=== PATIENT | male | born 1950 | race Caucasian/White ===

== ENCOUNTER 2024-01-15 13:41 | Emergency (ER) | payer BC, SELFPAY ==
[2024-01-15 13:47] VITALS: BP 159/95
--- NOTE | 2024-01-15 16:04 | ED.GENMED ---
History of Present Illness
General
Chief Complaint: Back Pain
Source: patient
Exam Limitations: none
Time Seen by Provider: 01/15/24 15:51
Nursing documentation reviewed up to this point in time: agreed with
Travel History
Have you had any contact with someone who has COVID-19?: No
Do you have any symptoms of coronavirus? Fever > 100 degrees, chills, cough, shortness of breath, sore throat, loss of taste or smell, muscle aches, or headache?: No
History of Present Illness
History of Present Illness:
Patient to ED with complaint of upper back muscle spasms that have progressed to include entire back. This is an ongoing issue for him. He has been seen multiple times in the past for same. Treated with toradol,, valium, decadron with good results
in past. States he gets botox injections every 3 mos. Last injection ws in october. He is due to see provider in 2 weeks. Denies fever/chills, recent illness. No cp/pressur, SOB/cough. No history of recent trauma. No weakness inextremities.
Taking tramadol at home without improvement.
Past History
Past History
ED Past Medical History: Psychiatric (Anxiety) and Other (Left shoulder dislocation, trauma involving fractures of his left ribs, left clavicle, and left hemipelvis. Chronic back pain, Rheumatic heart disease, ADHD)
ED Past Surgical History: Orthopedic (Right shoulder, Right hip repair, Left knee replacement. )
Social History
Tobacco: Former smoker
Alcohol: None
Drug: None
Personal:
Living: with family
Employment: Retired
Family History
Family History: Other
Review of Systems
Review of Systems
Allergies reviewed?: Yes
All Other Systems: ROS reviewed and negative except as documented in HPI and ROS
Constitutional: Reports no symptoms
EENT: Reports no symptoms
Respiratory: Reports no symptoms
Cardiac: Reports no symptoms
ABD/GI: Reports no symptoms
: Reports no symptoms
Musculoskeletal: Reports muscle pain (Muscle spasms of back, left upper back to left lumbar region)
Skin: Reports no symptoms
Neurological: Reports no symptoms
Psychiatric: Reports no symptoms
Phy Exam
General Physical Exam
General Presentation: well appearing and no apparent distress
General age: appears stated age
General Skin: warm and dry
General Habitus: normal
General Mental: alert
General Hydration: appears well hydrated
Musculoskeletal Exam
Musculoskeletal Exam: full ROM and neuro vasc intact
Skin Exam
Skin Exam: normal color, warm/dry and no rash
Psychiatric Exam
Psychiatric Exam: normal mood/affect
Course
Orders/Labs/Results
Orders:
Orders
01/15/24 16:01
Dexamethasone Sod Phosphate [Decadron] 10 mg IV NOW STA
Ketorolac [Toradol] 30 mg IV NOW STA
diazePAM [Valium Injection] 5 mg IV NOW STA
Vital Signs
Initial and Last Documented VS:
Initial Vital Signs
Temp Pulse Resp BP Pulse Ox
98.3 F 100 16 159/95 98
01/15/24 13:47 01/15/24 13:47 01/15/24 13:47 01/15/24 13:47 01/15/24 13:47
Last Documented Vital Signs
Temp Pulse Resp BP Pulse Ox
98.3 F 100 16 159/95 98
01/15/24 13:47 01/15/24 13:47 01/15/24 13:47 01/15/24 13:47 01/15/24 13:47
*Critical Care Note
Total Time (30-74mins, 75-104mins- exclusive of procedures): Not Applicable
Update Note
Update Note:
Improved after IV medicatioms. He is discharged home. WIll follow up with pain managment.
ED Attending Note
-
Portions of this chart may have been created with voice recognition software.� Occasional wrong word or��sound alike� substitutions may have occurred due to the inherent limitations of voice recognition software.
Discharge Plan
Departure
Patient Disposition: Home (Routine Discharge)
Date of Disposition: 01/15/24
Time of Disposition: 16:53
Patient with high blood pressure during this ER visit?: No
Condition: Good
Covid-19: Not Applicable
Discharge Problem:
Muscle spasm
Instructions: Muscle Spasms (DC)
Prescriptions:
No Action
dextroamphetamine-amphetamine [Adderall] 30 MG tablet
30 mg PO DAILY
mupirocin 1 APPLIC ointment
1 applic intranasal BID Qty: 1 0RF
Patient Comments:
pt completed 3 days preop and AM of surgery. -WM
celecoxib 200 MG capsule
200 mg PO DAILY Qty: 30 0RF
Rx Instructions:
Take with food.
Do not take within 2 hours of Aspirin.
sennosides [senna] 1 TABLET tablet
2 tab PO BID 0RF
lidocaine [Aspercreme (lidocaine)] 1 PATCH adhesive patch,medicated
2 patch topical DAILY PRNQty: 14 0RF
Rx Instructions:
Over the counter. Remove nightly.
Apply to right thigh. Do not apply over incision.
aspirin 325 MG tablet
325 mg PO DAILY Qty: 28 0RF
Rx Instructions:
Take daily x4 weeks for blood clot prevention.
magnesium hydroxide 30 ML suspension
30 ml PO DAILYPRN PRN (Reason: constipation) 0RF
docusate sodium 100 MG capsule
100 mg PO BID 0RF
amlodipine 5 MG tablet
5 mg PO DAILY Qty: 0 0RF
Rx Instructions:
Hold if systolic blood pressure <130 while on Oxycodone.
lisinopril 10 MG tablet
10 mg PO DAILY Qty: 0 0RF
Rx Instructions:
Hold if systolic blood pressure <130 while on Oxycodone.
oxycodone 5 MG tablet
5 mg PO Q4HPRN PRN (Reason: moderate-severe pain) Qty: 30 0RF
Rx Instructions:
1 tab moderate pain or 2 if pain severe
Dx total joint replacement
ongoing therapy
acetaminophen 500 MG tablet
1,000 mg PO Q6H Qty: 60 0RF
Rx Instructions:
Do not exceed >4000 mg daily.
pantoprazole 40 MG tablet,delayed release (DR/EC)
40 mg PO DAILY Qty: 30 0RF
Rx Instructions:
Take daily while on Celebrex.
cyclobenzaprine 10 mg tablet
10 mg PO TID PRN (Reason: muscle spasm) Qty: 10 0RF
dexamethasone 6 mg tablet
6 mg PO ONCE Qty: 1 0RF
Rx Instructions:
TAKE ON 04/19
Referrals:
Irma Brewer MD [Family Provider] - Tomorrow
Interventions
Interventions:
*Risk Screen - Suicide Last Done: 01/15/24 15:57
*Neglect/Abuse Screening Last Done: 01/15/24 15:57
ED- Fall Risk Assessment Last Done: 01/15/24 15:56
*ED COVID-19 Vaccine History Last Done: 01/15/24 13:49
ED-Musculoskeletal Assessment Last Done: 01/15/24 15:56
Musculoskeletal Injury Exam
Musculoskeletal Injury Exam
Left upper back to left lumbar region:
Pain with Movement?: Moderate (muscle spasms)
Tender to palpation?: Moderate
Soft tissue swelling?: None
External deformity and angulation?: None
Joint effusion?: None
Contusion?: None
Hematoma-local bleeding into tissue?: None
Strain- Sprain- Tear (Connective tissue injury)?: None
Crepitus with movement?: No
Joint instability?: No
Malalignment/deformity?: No
Range of motion: Limited
Distal skin color and temperature: normal-warm & good color
Capillary Refill: normal
Normal distal neurovascular exam?: Yes
[2024-01-15] MEDS: DECADRON 10 MG IV (16:17)
[2024-01-15] MEDS: VALIUM INJECTION 5 MG IV (16:17)
[2024-01-15] MEDS: TORADOL 30 MG IV (16:17)
[2024-01-15 17:03] VITALS: BP 131/89
== END 2024-01-15 17:03 | disposition home or self-care (01) ==
LOC: EMR 13:41
PROVIDERS: EMERGENCY PHYSICIAN Emergency Medicine; FAMILY PHYSICIAN Family Medicine
DX: M62.830 Muscle spasm of back (principal); Z87.891 Personal history of nicotine dependence
CPT/HCPCS: 99284; 96374; 96375 ×2

== ENCOUNTER 2024-03-29 19:23 | Emergency (ER) | payer BC, SELFPAY ==
[2024-03-29 19:25] VITALS: BP 121/89
[2024-03-29] MEDS: DUONEB 3 ML INH (21:04)
--- NOTE | 2024-03-29 21:27 | ED.GENMED ---
History of Present Illness
General
Chief Complaint: Breathing Problem
Source: patient
Exam Limitations: none
Time Seen by Provider: 03/29/24 20:49
Travel History
Have you had any contact with someone who has COVID-19?: No
Do you have any symptoms of coronavirus? Fever > 100 degrees, chills, cough, shortness of breath, sore throat, loss of taste or smell, muscle aches, or headache?: No
History of Present Illness
History of Present Illness:
This is a 73 year old male that comes in with cough. States that [place] [place] States that today he started at 3pm with cough that has returned. States that he had this before and it has gone away. States that he feels
like his right tonsil is sore and like there is something stuck in his throat. States that this has been on and off for about 6 weeks. States that he was on Ceftin 300mg, and then Doxycycline with prednisone. States that he is still taking the
Prednisone and Doxycycline. States that he has a headache, dizziness and slight SOB. Denies any fever, chills, chest pain, abd pain, nausea, vomiting, diarrhea, urinary burning.
Past History
Past History
ED Past Medical History: Psychiatric (Anxiety) and Other (Left shoulder dislocation, trauma involving fractures of his left ribs, left clavicle, and left hemipelvis. Chronic back pain, Rheumatic heart disease, ADHD)
ED Past Surgical History: Orthopedic (Right and left shoulder, Right hip repair, Left knee replacement. Left hand tendon replacement)
Social History
Tobacco: Former smoker
Alcohol: None
Drug: None
Personal:
Living: with family
Employment: Retired
Family History
Family History: Other
Review of Systems
Review of Systems
All Other Systems: ROS reviewed and negative except as documented in HPI and ROS
Constitutional: Reports no symptoms; Denies fever or chills
EENT: Reports no symptoms
Respiratory: Reports cough and trouble breathing
Cardiac: Denies chest pain
ABD/GI: Reports no symptoms; Denies abdominal pain, nausea, vomiting or diarrhea
: Reports no symptoms; Denies dysuria, frequency or urgency
Musculoskeletal: Reports no symptoms
Skin: Reports no symptoms
Neurological: Reports dizzy and headache
Psychiatric: Reports no symptoms
Phy Exam
General Physical Exam
General Presentation: no apparent distress
General age: appears stated age
General Skin: warm and dry
General Habitus: elderly
General Mental: alert
General Hydration: appears well hydrated
ENT Exam
ENT Exam: TM's normal, pharynx normal (Negative for any redness or exudate) and neck supple
Eye Exam
Eye Exam: EOMI
Cardiovascular Exam
Cardiovascular Exam: regular rate/rhythm, no edema and normal peripheral pulses
Pulmonary Exam
Pulmonary Exam: lungs clear, no respiratory distress, no rales, chest non tender, no crackles, no rhonchi, no wheezing and other (Dry cough noted)
Gastrointestinal Exam
Gastrointestinal Exam: normal bowel sounds, non tender, soft, no organomegaly, no pulsatile mass and non distended
Musculoskeletal Exam
Musculoskeletal Exam: full ROM and no edema
Skin Exam
Skin Exam: normal color, warm/dry, no rash and no petechia
Psychiatric Exam
Psychiatric Exam: normal mood/affect
Scores
Heart Failure Risk
Heart Failure Risk Score: Not Applicable
Course
Orders/Labs/Results
Orders:
Orders
03/29/24 19:32
Chest [CR Chest - 2 Views ] Urgent
Comment:
Reason For Exam: cough and sob for 6 weeks.
03/29/24 21:01
Ipratropium/Albuterol Sulfate [Duoneb] 3 ml .ROUTE .STK-MED ONE
03/29/24 21:04
Ipratropium/Albuterol Sulfate [Duoneb] 3 ml INH R NOW ONE
03/29/24 21:26
Ipratropium/Albuterol Sulfate [Duoneb] 3 ml INH R NOW ONE
03/29/24 21:49
Promethazine/Codeine [Phenergan with Codeine Syrup] 5 ml PO NOW STA
03/29/24 22:03
D-Dimer Urgent
03/29/24 23:18
Complete Blood Count/With Diff Urgent
Comprehensive Metabolic Panel Urgent
03/30/24 00:00
CT Chest Pe Study Urgent
Reason For Exam: SOB, cough, elevated D-dimer
Abnormal Lab Results
03/29/24 03/29/24
22:03 23:18
WBC 13.2 H 10^3/uL
(4.8-10.8)
MCV 78.6 L fL
(80.0-94.0)
MCH 26.2 L pg
(27.0-31.0)
RDW 15.6 H %
(11.5-14.5)
Plt Count 480 H 10^3/uL
(130-400)
Abs Immat Gran (auto) 0.1 H 10^3/uL
(0-0.05)
Absolute Neuts (auto) 10.8 H 10^3/uL
(1.4-6.5)
Absolute Monos (auto) 1.1 H 10^3/uL
(0.1-0.6)
Immature Gran % 0.7 H %
(0-0.5)
Neutrophils % 81.5 H %
(42.2-75.2)
Lymphocytes % 9.4 L %
(20.5-51.1)
D-Dimer 0.58 H ug/mlFEU
(0.00-0.50)
BUN 26 H mg/dl
(9-20)
Glucose 116 H mg/dl
(70-99)
03/29/24 23:18
03/29/24 23:18
Leukocytosis, Plt slightly elevlated. D-dimer slightly elevated ( may be are elevation but will get CT), Dehydration. Glucose nonfasting.
Vital Signs
Initial and Last Documented VS:
Initial Vital Signs
Temp Pulse Resp BP Pulse Ox
98.7 F 92 18 121/89 96
03/29/24 19:25 03/29/24 19:25 03/29/24 19:25 03/29/24 19:25 03/29/24 19:25
Last Documented Vital Signs
Temp Pulse Resp BP Pulse Ox
98.7 F 80 20 136/69 94
03/29/24 19:25 03/30/24 00:45 03/30/24 00:45 03/30/24 00:00 03/30/24 00:45
MDM/Problems Addressed
Differential Diagnosis Includes:
Bronchitis, PE, Viral syndrome
MDM/Problems Addressed:
This is a 73 year old male that comes in with c/o cough and slight SOB. States that he has been sick on and off for 6 weeks. States that he was doing better and then today the cough came back. Patient has been on antibiotics and steroids
Will get chest x-ray and check D-dimer.
Back into see patient. States that the Duo neb did not make any difference. Patient is coughing continues at this time. Will give Phenergan with Codeine and recheck.
Back into see patient. Explained that the CT is negative for any PE. Patient states that the Phenergan with Codeine seemed to really help. Will have patient continue with the Doxycycline that he is taking and the steroid and will give prescription
for Phenergan with Codeine. Patient to increase his water intake to 8-8oz glasses daily. Follow up with the family doctor. Return with any concerns.
Chronic conditions affecting care:
NA
Acute Exacerbation and/or Progression of Chronic Illness:
NA
*Radiology
Radiology exam reviewed: radiology read reviewed (Chest-NO acute disease of the chest CT night hawk- Adequate technical study. No acute Pulmonary embolism. NO thoracic aortic aneurysm or acute aortic dissection. Bibasilar atelectasis. Mild
thickening of the airways. Incidentals: Small hiatal hernia. Age indeterminate anterior compression ) and other (CT cont- deformity of the T4 vertebral body with approximately 30% height loss. NO acute abnormality within the visualized abdomen. No
thoracic lymphadenopathy or suspicious lymph nodes. )
*Pulse Oximetry
Patient hypoxic: no
*EKG
Interpreted by ED Provider?: NA
Rate: EKG- N/A
*Office Helper Clerical Interpretation
Rate: Office Helper Clerical- N/A
*Critical Care Note
Total Time (30-74mins, 75-104mins- exclusive of procedures): Not Applicable
ED Attending Note
-
Portions of this chart may have been created with voice recognition software.� Occasional wrong word or��sound alike� substitutions may have occurred due to the inherent limitations of voice recognition software.
Discharge Plan
Departure
Patient Disposition: Home (Routine Discharge)
Date of Disposition: 03/30/24
Time of Disposition: 01:48
Patient with high blood pressure during this ER visit?: Yes
Condition: Good
Covid-19: Not Applicable
Discharge Problem:
Bronchitis
Instructions: Acute Bronchitis, Adult (DC), BLOOD PRESSURE
Prescriptions:
New
promethazine-codeine 6.25-10 mg/5 mL syrup
5 ml PO Q6H PRN (Reason: Cough) Qty: 118 0RF
Rx Instructions:
May use 10ml if needed for cough
No Action
dextroamphetamine-amphetamine [Adderall] 30 MG tablet
30 mg PO DAILY
mupirocin 1 APPLIC ointment
1 applic intranasal BID Qty: 1 0RF
Patient Comments:
pt completed 3 days preop and AM of surgery. -WM
celecoxib 200 MG capsule
200 mg PO DAILY Qty: 30 0RF
Rx Instructions:
Take with food.
Do not take within 2 hours of Aspirin.
sennosides [senna] 1 TABLET tablet
2 tab PO BID 0RF
lidocaine [Aspercreme (lidocaine)] 1 PATCH adhesive patch,medicated
2 patch topical DAILY PRNQty: 14 0RF
Rx Instructions:
Over the counter. Remove nightly.
Apply to right thigh. Do not apply over incision.
aspirin 325 MG tablet
325 mg PO DAILY Qty: 28 0RF
Rx Instructions:
Take daily x4 weeks for blood clot prevention.
magnesium hydroxide 30 ML suspension
30 ml PO DAILYPRN PRN (Reason: constipation) 0RF
docusate sodium 100 MG capsule
100 mg PO BID 0RF
amlodipine 5 MG tablet
5 mg PO DAILY Qty: 0 0RF
Rx Instructions:
Hold if systolic blood pressure <130 while on Oxycodone.
lisinopril 10 MG tablet
10 mg PO DAILY Qty: 0 0RF
Rx Instructions:
Hold if systolic blood pressure <130 while on Oxycodone.
oxycodone 5 MG tablet
5 mg PO Q4HPRN PRN (Reason: moderate-severe pain) Qty: 30 0RF
Rx Instructions:
1 tab moderate pain or 2 if pain severe
Dx total joint replacement
ongoing therapy
acetaminophen 500 MG tablet
1,000 mg PO Q6H Qty: 60 0RF
Rx Instructions:
Do not exceed >4000 mg daily.
pantoprazole 40 MG tablet,delayed release (DR/EC)
40 mg PO DAILY Qty: 30 0RF
Rx Instructions:
Take daily while on Celebrex.
cyclobenzaprine 10 mg tablet
10 mg PO TID PRN (Reason: muscle spasm) Qty: 10 0RF
dexamethasone 6 mg tablet
6 mg PO ONCE Qty: 1 0RF
Rx Instructions:
TAKE ON 04/19
Referrals:
Irma Brewer MD [Family Provider] - Follow up in 5-7 days
Activity Restrictions/Additional Instructions:
As discussed, your blood work shows that your WBC are slightly elevated. You are also dehydrated. Please increase your water intake to 8-8oz glasses daily. Please continue with the Doxycycline that you are taking and the Prednisone. You have had a
prescription for Phenergan with Codeine sent to your Pharmacy. Please take this at night to help you sleep. Follow up with the family doctor in the next 5-7 days. IF YOU HAVE INCREASED SHORTNESS OF BREATH, FEVER, OR YOU HAVE ANY OTHER CONCERNS
PLEASE RETURN TO THE EMERGENCY ROOM.
Interventions
Interventions:
*Risk Screen - Suicide Last Done: 03/29/24 19:25
*General Assessment Last Done: 03/29/24 19:25
*Neglect/Abuse Screening Last Done: 03/29/24 19:25
ED- Fall Risk Assessment Last Done: 03/29/24 20:54
ED- Cardiac Assessment Last Done: 03/29/24 20:54
ED- Pulmonary Assessment Last Done: 03/29/24 20:54
Discharge Date and Time
Print Language: ERITREAN
[2024-03-29] MEDS: PHENERGAN WITH CODEINE SYRUP 5 ML PO (21:53)
[2024-03-29 22:02] VITALS: BP 148/79
[2024-03-29 22:21] LABS: D-Dimer 0.58 ug/mlFEU (0.00-0.50)
[2024-03-29 23:00] VITALS: BP 134/69
[2024-03-29 23:23] LABS: % Basophils 0.1 % (0-2); % Immature Granulocytes 0.7 % (0-0.5); % Lymphocytes 9.4 % (20.5-51.1); % Monocytes 8.3 % (1.7-9.3); % Neutrophils 81.5 % (42.2-75.2); Absolute Immature Granulocytes 0.1 10^3/uL (0-0.05); Absolute Lymphocytes 1.2 10^3/uL (1.2-3.4); Absolute Monocytes 1.1 10^3/uL (0.1-0.6); Absolute Neutrophils 10.8 10^3/uL (1.4-6.5); Hematocrit 39.6 % (39.0-52.0); Hemoglobin 13.2 g/dL (13.0-18.0); Mean Corp Hgb Conc. 33.3 g/dL (33.0-37.0); Mean Corpuscular Hgb 26.2 pg (27.0-31.0); Mean Corpuscular Volume 78.6 fL (80.0-94.0); Mean Platelet Volume 9.8 fL (7.4-10.4); Nucleated Red Blood Cells % 0 % (-); Platelet Count 480 10^3/uL (130-400); Red Blood Cell Count 5.04 10^6/uL (4.70-6.10); Red Cell Dist. Width 15.6 % (11.5-14.5); White Blood Cell Count 13.2 10^3/uL (4.8-10.8)
[2024-03-29 23:41] LABS: ALT (SGPT) 30 U/L (0-50); AST (SGOT) 23 U/L (17-59); Albumin 4.2 g/dl (3.5-5.0); Alkaline Phosphatase 84 U/L (38-126); Blood Urea Nitrogen 26 mg/dl (9-20); Calcium 9.7 mg/dl (8.4-10.2); Carbon Dioxide 22 mmol/L (22-30); Chloride 105 mmol/L (98-107); Glucose 116 mg/dl (70-99); Potassium 4.2 mmol/L (3.5-5.1); Sodium 137 mmol/L (135-145); Total Bilirubin 0.4 mg/dl (0.2-1.3); Total Protein 7.3 g/dl (6.3-8.2); eGFR > 60.00
[2024-03-30] VITALS: BP 136/69
[2024-03-30 01:46] VITALS: BP 145/63
== END 2024-03-30 02:41 | disposition home or self-care (01) ==
LOC: EMR 19:23
PROVIDERS: Clinical Nurse Specialist Family Health; EMERGENCY PHYSICIAN Emergency Medicine; FAMILY PHYSICIAN Family Medicine
DX: J40 Bronchitis, not specified as acute or chronic (principal); R03.0 Elevated blood-pressure reading, without diagnosis of hypertension; Z87.891 Personal history of nicotine dependence
CPT/HCPCS: 99285; 94640; 71046; 71275; 80053; 85025; 85379; Q9967

== ENCOUNTER 2024-06-03 09:33 | Emergency (ER) | payer BC, SELFPAY ==
[2024-06-03 09:38] VITALS: BP 133/51
--- NOTE | 2024-06-03 10:55 | ED.GENMED ---
History of Present Illness
General
Chief Complaint: Back Pain
Source: patient
Time Seen by Provider: 06/03/24 10:41
History of Present Illness
History of Present Illness:
73yoM with a history of chronic back pain presenting for evaluation of left sided upper back pain x 3 days. He reports back spasms in his trapezius and rhomboid muscles. He reports ongoing issues with back spasms for several years. He sees neurology
and receives botox injections. He typically comes to the ED for IV medications to 'break the cycle.' He typically receives IV Toradol, Valium, and steroids which he is requesting. He tried Tramadol, Advil, and a muscle relaxer at home without
improvement. He denies any atypical symptoms. He denies any fevers, chest pain, shortness of breath, paresthesias, weakness, incontinence. He reports having an MRI a few month ago which showed muscle wasting.
Past History
Past History
ED Past Medical History: Psychiatric (Anxiety) and Other (Left shoulder dislocation, trauma involving fractures of his left ribs, left clavicle, and left hemipelvis. Chronic back pain, Rheumatic heart disease, ADHD)
ED Past Surgical History: Orthopedic (Right and left shoulder, Right hip repair, Left knee replacement. Left hand tendon replacement)
Social History
Tobacco: Former smoker
Alcohol: None
Drug: None
Personal:
Living: with family
Employment: Retired
Family History
Family History: Other
Phy Exam
General Physical Exam
General Presentation: well appearing and no apparent distress
General age: appears stated age
General Skin: warm and dry
General Habitus: normal
General Mental: alert
Cardiovascular Exam
Cardiovascular Exam: regular rate/rhythm, no edema and no murmur
Pulmonary Exam
Pulmonary Exam: lungs clear, no respiratory distress, no crackles and no wheezing
Musculoskeletal Exam
Musculoskeletal Exam: other (+Tenderness and spasm in L upper back. No skin changes. No midline spinous process tenderness. )
Course
Orders/Labs/Results
Orders:
Orders
06/03/24 10:54
Dexamethasone Sod Phosphate [Decadron] 10 mg IV NOW STA
Ketorolac [Toradol] 15 mg IV NOW STA
diazePAM [Valium Injection] 5 mg IV NOW STA
Vital Signs
Initial and Last Documented VS:
Initial Vital Signs
Temp Pulse Resp BP Pulse Ox
98.4 F 89 16 133/51 98
06/03/24 09:38 06/03/24 09:38 06/03/24 09:38 06/03/24 09:38 06/03/24 09:38
Last Documented Vital Signs
Temp Pulse Resp BP Pulse Ox
98.4 F 89 16 133/51 97
06/03/24 09:38 06/03/24 12:39 06/03/24 09:38 06/03/24 09:38 06/03/24 12:39
MDM/Problems Addressed
Differential Diagnosis Includes:
73yM here with acute on chronic back pain. C/o atraumatic L upper back pain x 3 days. Hx of the same. Here requesting IV medications. No red flags in history including no fevers, saddle anesthesia, incontinence. He is afebrile and hemodynamically
stable. He is well-appearing no acute distress. There is reproducible muscular tenderness on exam. Differential diagnosis includes but is not limited to: Muscle spasm, doubt fracture, doubt pulmonary pathology
Will defer imaging at this time. IV Toradol, Decadron, and Valium ordered for symptoms.
*Critical Care Note
Total Time (30-74mins, 75-104mins- exclusive of procedures): Not Applicable
Update Note
Update Note:
Patient feeling better on reassessment and is requesting discharge. Pain is currently a 5-6/10 in severity. Advised f/u with PCP and pain management. ED return precautions discussed. He was discharged in stable condition.
ED Attending Note
-
Portions of this chart may have been created with voice recognition software.� Occasional wrong word or��sound alike� substitutions may have occurred due to the inherent limitations of voice recognition software.
Discharge Plan
Departure
Patient Disposition: Home (Routine Discharge)
Date of Disposition: 06/03/24
Time of Disposition: 12:44
Patient with high blood pressure during this ER visit?: No
Discharge Problem:
Spasm of thoracic back muscle
Instructions: Back Pain
Prescriptions:
No Action
dextroamphetamine-amphetamine [Adderall] 30 MG tablet
30 mg PO DAILY
mupirocin 1 APPLIC ointment
1 applic intranasal BID Qty: 1 0RF
Patient Comments:
pt completed 3 days preop and AM of surgery. -WM
celecoxib 200 MG capsule
200 mg PO DAILY Qty: 30 0RF
Rx Instructions:
Take with food.
Do not take within 2 hours of Aspirin.
sennosides [senna] 1 TABLET tablet
2 tab PO BID 0RF
lidocaine [Aspercreme (lidocaine)] 1 PATCH adhesive patch,medicated
2 patch topical DAILY PRNQty: 14 0RF
Rx Instructions:
Over the counter. Remove nightly.
Apply to right thigh. Do not apply over incision.
aspirin 325 MG tablet
325 mg PO DAILY Qty: 28 0RF
Rx Instructions:
Take daily x4 weeks for blood clot prevention.
magnesium hydroxide 30 ML suspension
30 ml PO DAILYPRN PRN (Reason: constipation) 0RF
docusate sodium 100 MG capsule
100 mg PO BID 0RF
amlodipine 5 MG tablet
5 mg PO DAILY Qty: 0 0RF
Rx Instructions:
Hold if systolic blood pressure <130 while on Oxycodone.
lisinopril 10 MG tablet
10 mg PO DAILY Qty: 0 0RF
Rx Instructions:
Hold if systolic blood pressure <130 while on Oxycodone.
oxycodone 5 MG tablet
5 mg PO Q4HPRN PRN (Reason: moderate-severe pain) Qty: 30 0RF
Rx Instructions:
1 tab moderate pain or 2 if pain severe
Dx total joint replacement
ongoing therapy
acetaminophen 500 MG tablet
1,000 mg PO Q6H Qty: 60 0RF
Rx Instructions:
Do not exceed >4000 mg daily.
pantoprazole 40 MG tablet,delayed release (DR/EC)
40 mg PO DAILY Qty: 30 0RF
Rx Instructions:
Take daily while on Celebrex.
cyclobenzaprine 10 mg tablet
10 mg PO TID PRN (Reason: muscle spasm) Qty: 10 0RF
dexamethasone 6 mg tablet
6 mg PO ONCE Qty: 1 0RF
Rx Instructions:
TAKE ON 04/19
promethazine-codeine 6.25-10 mg/5 mL syrup
5 ml PO Q6H PRN (Reason: Cough) Qty: 118 0RF
Rx Instructions:
May use 10ml if needed for cough
Referrals:
Irma Brewer MD [Family Provider] -
Frank Casiano MD [Active] -
Activity Restrictions/Additional Instructions:
Please follow-up with your family doctor and pain management. Return to the ER with any worsening symptoms.
Interventions
Interventions:
*Risk Screen - Suicide Last Done: 06/03/24 11:11
*General Assessment Last Done: 06/03/24 11:11
*Neglect/Abuse Screening Last Done: 06/03/24 11:11
*ED COVID-19 Vaccine History Last Done: 06/03/24 11:11
*Nursing Disposition Last Done: 06/03/24 12:51
ED-Musculoskeletal Assessment Last Done: 06/03/24 11:11
Discharge Date and Time
Discharge Date/Time: 06/03/24 12:52
Print Language: HUNGARIAN
[2024-06-03] MEDS: TORADOL 15 MG IV (11:16)
[2024-06-03] MEDS: DECADRON 10 MG IV (11:16)
[2024-06-03] MEDS: VALIUM INJECTION 5 MG IV (11:16)
== END 2024-06-03 12:52 | disposition home or self-care (01) ==
LOC: EMR 09:33
PROVIDERS: EMERGENCY PHYSICIAN Emergency Medicine; FAMILY PHYSICIAN Family Medicine
DX: M62.830 Muscle spasm of back (principal); F41.9 Anxiety disorder, unspecified; I09.9 Rheumatic heart disease, unspecified; F90.9 Attention-deficit hyperactivity disorder, unspecified type; Z87.891 Personal history of nicotine dependence
CPT/HCPCS: 96374; 96375; 99282

== ENCOUNTER 2024-06-03 17:23 | Emergency (ER) | payer BC, SELFPAY ==
[2024-06-03 17:32] VITALS: BP 118/85
[2024-06-03] MEDS: MOTRIN 600 MG PO (19:08)
--- NOTE | 2024-06-03 20:11 | ED.GENMED ---
History of Present Illness
General
Chief Complaint: Back Pain
Source: patient
Exam Limitations: none
Time Seen by Provider: 06/03/24 19:56
History of Present Illness
History of Present Illness:
This is a 73 year old male that comes in with c/o back spasm. State that he was here earlier today and he was given Valium, Toradol and steroids. States that this worked and he went home. Then the pain come back a couple hours later. Now he has this
burning pain on the left trapezius and this goes down his side from under his clavicle plate. States that he does get Botox shots for his and he is followed by a Neurologist as the Orthopedic said there was nothing they could do. Patient states
that he did not take any medication at home and he dose have Valium and Tramadol at home. States that he does get nauseated with the pain. Denies any fever, chills, chest pain, SOB, abd pain, vomiting, diarrhea, headache, dizziness, urinary burning.
Past History
Past History
ED Past Medical History: Psychiatric (Anxiety) and Other (Left shoulder dislocation, trauma involving fractures of his left ribs, left clavicle, and left hemipelvis. Chronic back pain, Rheumatic heart disease, ADHD, Malunion ribs)
ED Past Surgical History: Orthopedic (Right and left shoulder, Right hip repair, Left knee replacement. Left hand tendon replacement)
Social History
Tobacco: Former smoker
Alcohol: Occasional
Drug: None
Personal:
Living: with family
Employment: Retired
Family History
Family History: Other
Review of Systems
Review of Systems
All Other Systems: ROS reviewed and negative except as documented in HPI and ROS
Constitutional: Reports no symptoms; Denies fever or chills
EENT: Reports no symptoms
Respiratory: Reports no symptoms; Denies cough or trouble breathing
Cardiac: Reports no symptoms; Denies chest pain
ABD/GI: Reports nausea; Denies abdominal pain, vomiting or diarrhea
: Reports no symptoms; Denies dysuria, frequency or urgency
Musculoskeletal: Reports back pain (Left upper back spasm)
Skin: Reports no symptoms
Neurological: Reports no symptoms; Denies dizzy or headache
Psychiatric: Reports no symptoms
Phy Exam
General Physical Exam
General Presentation: mild distress
General age: appears stated age
General Skin: warm and dry
General Habitus: elderly
General Mental: anxious
General Hydration: appears well hydrated
ENT Exam
ENT Exam: TM's normal, pharynx normal and neck supple
Eye Exam
Eye Exam: EOMI
Cardiovascular Exam
Cardiovascular Exam: regular rate/rhythm
Pulmonary Exam
Pulmonary Exam: lungs clear, no respiratory distress, no rales, chest non tender, no crackles, no rhonchi, no wheezing and no cough
Musculoskeletal Exam
Musculoskeletal Exam: full ROM and back pain (with muscle spasm palpable left trapezius. Tender to palpation. )
Skin Exam
Skin Exam: normal color, warm/dry, no rash and no petechia
Psychiatric Exam
Psychiatric Exam: anxious
Course
Orders/Labs/Results
Orders:
Orders
06/03/24 19:03
Ibuprofen [Motrin] 600 mg PO NOW STA
06/03/24 20:09
Diazepam [Valium] 10 mg PO NOW STA
06/03/24 20:09
Prednisone [Deltasone] 40 mg PO NOW STA
Vital Signs
Initial and Last Documented VS:
Initial Vital Signs
Temp Pulse Resp BP Pulse Ox
98.2 F 110 20 118/85 95
06/03/24 17:32 06/03/24 17:32 06/03/24 17:32 06/03/24 17:32 06/03/24 17:32
Last Documented Vital Signs
Temp Pulse Resp BP Pulse Ox
98.2 F 110 20 118/85 95
06/03/24 17:32 06/03/24 17:32 06/03/24 17:32 06/03/24 17:32 06/03/24 17:32
MDM/Problems Addressed
Differential Diagnosis Includes:
Chronic back pain
MDM/Problems Addressed:
This is a 73 year old male that was seen here earlier today for the same c/o left sided back pain. States that there is a burning in his back and that he was fine for a few hours and then the pain came back.
Explained to patient that he needs to call his Neurologist and follow up for Possible MRI and further evaluation. Patient can use heat or ice to help with pain. Patient has Tramadol and Valium at home. Will place on steroids and give a dose of
Valium here as son brought patient. Will discharge home.
Chronic conditions affecting care:
Chronic back pain
Acute Exacerbation and/or Progression of Chronic Illness:
Chronic back pain
*Pulse Oximetry
Patient hypoxic: no
*EKG
Interpreted by ED Provider?: NA
Rate: EKG- N/A
*Tank Shop Supervisor Interpretation
Rate: Tank Shop Supervisor- N/A
*Critical Care Note
Total Time (30-74mins, 75-104mins- exclusive of procedures): Not Applicable
ED Attending Note
-
Portions of this chart may have been created with voice recognition software.� Occasional wrong word or��sound alike� substitutions may have occurred due to the inherent limitations of voice recognition software.
Discharge Plan
Departure
Patient Disposition: Home (Routine Discharge)
Date of Disposition: 06/03/24
Time of Disposition: 20:19
Patient with high blood pressure during this ER visit?: No
Condition: Good
Covid-19: Not Applicable
Discharge Problem:
Chronic back pain
Instructions: Upper Back Pain (DC)
Prescriptions:
New
prednisone 20 mg tablet
40 mg PO DAILY Qty: 8 0RF
No Action
amlodipine 5 MG tablet
5 mg PO DAILY Qty: 0 0RF
Botox 100 unit Recon Soln
0 unit IM MONTHLY
dextroamphetamine-amphetamine [Adderall] 10 mg Tablet
10 mg PO NOON
tramadol 50 mg Tablet
50 mg PO Q6HPRN PRN (Reason: moderate pains)
dextroamphetamine-amphetamine [Adderall XR] 30 mg Capsule,Extended Release 24hr
30 mg PO DAILY
lisinopril 10 MG tablet
20 mg PO DAILY
Referrals:
Irma Brewer MD [Family Provider] - Follow up in 2-3 days
Activity Restrictions/Additional Instructions:
As discussed, please call your Neurologist tomorrow and set up an earlier appointment. They may also want to get a MRI since you have not had one since August 2023. You may use heat or ice to the left upper back. You have had a prescription sent
to your pharmacy for a steroid for the next 4 days. Use Tylenol 1000mg every 6 hours for pain and alternate with Ibuprofen 600mg every 6 hours with food for pain. Use the Valium you have at home to help relax the muscles. IF YOU HAVE ANY OTHER
CONCERNS PLEASE RETURN TO THE EMERGENCY ROOM.
Interventions
Interventions:
*Risk Screen - Suicide Last Done: 06/03/24 17:32
*General Assessment Last Done: 06/03/24 17:32
*Neglect/Abuse Screening Last Done: 06/03/24 17:32
ED-Musculoskeletal Assessment Last Done: 06/03/24 18:35
Discharge Date and Time
Print Language: PARAGUAYAN
[2024-06-03] MEDS: DELTASONE 40 MG PO (20:16)
[2024-06-03] MEDS: VALIUM 10 MG PO (20:17)
[2024-06-03 20:32] VITALS: BP 119/83
== END 2024-06-03 20:34 | disposition home or self-care (01) ==
LOC: EMR 17:23
PROVIDERS: EMERGENCY PHYSICIAN Student in an Organized Health Care Education/Training Program; FAMILY PHYSICIAN Family Medicine
DX: G89.29 Other chronic pain (principal); M54.9 Dorsalgia, unspecified; F41.9 Anxiety disorder, unspecified; I09.9 Rheumatic heart disease, unspecified; F90.9 Attention-deficit hyperactivity disorder, unspecified type; Z87.891 Personal history of nicotine dependence
CPT/HCPCS: 99282

== ENCOUNTER 2024-12-08 19:36 | Emergency (ER) | payer BC, SELFPAY ==
[2024-12-08 20:17] VITALS: BP 121/86
--- NOTE | 2024-12-08 21:29 | ED.GENMED ---
History of Present Illness
General
Chief Complaint: Musculo-Skeletal Complaint
Source: patient
Time Seen by Provider: 12/08/24 20:56
History of Present Illness
History of Present Illness:
74-year-old male presents to the emergency room complaining of significant pain left arm as well as ecchymosis and swelling of the left lower arm. Patient states [place] He was diagnosed with a humeral
fracture. Patient was placed in a sugar-tong splint and discharged. He has an appointment with Dr. Quinones in the next couple days. However today he noticed the swelling and ecchymosis in his left arm and hand. No new injuries. No other complaints.
Past History
Past History
ED Past Medical History: Psychiatric (Anxiety) and Other (Left shoulder dislocation, trauma involving fractures of his left ribs, left clavicle, and left hemipelvis. Chronic back pain, Rheumatic heart disease, ADHD, Malunion ribs)
ED Past Surgical History: Orthopedic (Right and left shoulder, Right hip repair, Left knee replacement. Left hand tendon replacement)
Social History
Tobacco: Former smoker
Alcohol: Occasional
Drug: None
Personal:
Living: with family
Employment: Retired
Family History
Family History: Other
Phy Exam
Physical Exam
Physical Exam:
General: Awake, Alert, Oriented X3. No acute distress.
Vitals: unremarkable
Head: Atraumatic
Eyes: Pupils equal, EOMI
Throat: Airway intact, no exudates
Neck: Trachea midline
Neuro: Focal
Skin: Warm, dry, no rash
Extremities: pulses equal b/l, no edema. Ulnar gutter splint noted left upper arm. Sensation grossly intact, range of motion in the fingers and hand and wrist intact. There are some ecchymosis noted to the forearm
Course
Vital Signs
Initial and Last Documented VS:
Initial Vital Signs
Temp Pulse Resp BP Pulse Ox
98.4 F 105 18 121/86 95
12/08/24 20:17 12/08/24 20:17 12/08/24 20:17 12/08/24 20:17 12/08/24 20:17
Last Documented Vital Signs
Temp Pulse Resp BP Pulse Ox
98.4 F 105 18 121/86 95
12/08/24 20:17 12/08/24 20:17 12/08/24 20:17 12/08/24 20:17 12/08/24 20:17
MDM/Problems Addressed
Differential Diagnosis Includes:
DVT, swelling from existing fracture, inadequate immobilization
MDM/Problems Addressed:
Patient presents with swelling and ecchymosis noted which he felt his knee today. He does have an acute fracture in the upper arm from last week. I suspect the swelling and ecchymosis is just secondary to the acute injury last week and the
ecchymosis is blood tracking down his arm. He is neurovascular intact. We will apply a long-arm splint on top of his sugar-tong to provide more support to his arm as he continues to have significant pain with movement. Patient can be discharged
to follow-up as an outpatient.
*Critical Care Note
Total Time (30-74mins, 75-104mins- exclusive of procedures): Not Applicable
ED Attending Note
-
Portions of this chart may have been created with voice recognition software.� Occasional wrong word or��sound alike� substitutions may have occurred due to the inherent limitations of voice recognition software.
Discharge Plan
Departure
Patient Disposition: Home (Routine Discharge)
Date of Disposition: 12/08/24
Time of Disposition: 21:38
Patient with high blood pressure during this ER visit?: No
Condition: Good
Discharge Problem:
Humeral fracture
Instructions: Upper Arm Fracture ED
Prescriptions:
No Action
amlodipine 5 MG tablet
5 mg PO DAILY Qty: 0 0RF
Botox 100 unit Recon Soln
0 unit IM MONTHLY
dextroamphetamine-amphetamine [Adderall] 10 mg Tablet
10 mg PO NOON
tramadol 50 mg Tablet
50 mg PO Q6HPRN PRN (Reason: moderate pains)
dextroamphetamine-amphetamine [Adderall XR] 30 mg Capsule,Extended Release 24hr
30 mg PO DAILY
lisinopril 10 MG tablet
20 mg PO DAILY
prednisone 20 mg tablet
40 mg PO DAILY Qty: 8 0RF
Referrals:
rIma Brewer MD [Family Provider] -
Kenji Quinones MD [Active] -
Interventions
Interventions:
*Risk Screen - Suicide Last Done: 12/08/24 19:52
*General Assessment Last Done: 12/08/24 20:18
*Neglect/Abuse Screening Last Done: 12/08/24 19:52
*ED COVID-19 Vaccine History Last Done: 12/08/24 19:51
*Nursing Disposition Last Done: 12/08/24 21:51
ED-Musculoskeletal Assessment Last Done: 12/08/24 20:18
Discharge Date and Time
Discharge Date/Time: 12/08/24 21:52
Print Language: PALAUAN
== END 2024-12-08 21:52 | disposition home or self-care (01) ==
LOC: EMR 19:36
PROVIDERS: EMERGENCY PHYSICIAN Emergency Medicine; FAMILY PHYSICIAN Family Medicine
DX: S42.302A Unspecified fracture of shaft of humerus, left arm, initial encounter for closed fracture (principal); W19.XXXA Unspecified fall, initial encounter; Z87.891 Personal history of nicotine dependence
CPT/HCPCS: 99283; 29125

== ENCOUNTER → 2024-12-11 11:02 | Outpatient (REF) | payer BC, SELFPAY | LOC: RCS 11:02 | PROVIDERS: ATTENDING PHYSICIAN Orthopaedic Surgery; FAMILY PHYSICIAN Family Medicine | DX: Z01.818 Encounter for other preprocedural examination (principal) | CPT/HCPCS: 93005 ==

== ENCOUNTER 2024-12-13 06:34 | Day surgery (SDC) | payer BC, SELFPAY ==
[2024-12-13] VITALS (11 sets, daily range): BP systolic 127–153; BP diastolic 65–91; BMI 29.4
[2024-12-13] MEDS: NORMOSOL-R/PLASMALYTE-A 1000 IV (12:45)
[2024-12-13] MEDS: CELEBREX 200 MG PO (12:56)
[2024-12-13] MEDS: TYLENOL 1000 MG PO (12:56)
[2024-12-13 13:05] LABS: Hematocrit 39.5 % (39.0-52.0); Hemoglobin 12.8 g/dL (13.0-18.0); Mean Corp Hgb Conc. 32.4 g/dL (33.0-37.0); Mean Corpuscular Hgb 26.2 pg (27.0-31.0); Mean Corpuscular Volume 80.8 fL (80.0-94.0); Mean Platelet Volume 9.2 fL (7.4-10.4); Platelet Count 389 10^3/uL (130-400); Red Blood Cell Count 4.89 10^6/uL (4.70-6.10); Red Cell Dist. Width 15.2 % (11.5-14.5); White Blood Cell Count 7.2 10^3/uL (4.8-10.8)
[2024-12-13] MEDS: DILAUDID 0.5 MG IV ×2 (18:36→19:14)
[2024-12-13] MEDS: DEMEROL 12.5 MG IV (18:45)
--- NOTE | 2024-12-13 21:02 | SUR.PHASEII ---
discharge from [facility] area, after second regional block with good pain control.
== END 2024-12-13 20:51 | disposition home or self-care (01) ==
LOC: SDS 06:34
PROVIDERS: Anesthesiology; ATTENDING PHYSICIAN Orthopaedic Surgery
DX: S42.302A Unspecified fracture of shaft of humerus, left arm, initial encounter for closed fracture (principal); S42.202A Unspecified fracture of upper end of left humerus, initial encounter for closed fracture; V00.321A Fall from snow-skis, initial encounter
CPT/HCPCS: 24515; C1713; 73060; 76000; 85027